=== PATIENT | male | born 1940 | race Caucasian/White ===

== ENCOUNTER → 2018-09-30 | Emergency (ER) | payer OTHER ==
[~2018-09-30] VITALS: Ht 180.3 cm; Wt 94.8 kg
[~2018-09-30] MED LIST: METFORMIN HCL850 MG; METFORMIN HCL850 MG PO; TAMS0.4C; VYTORIN 10/10 M1 TAB
== END | disposition left against medical advice (07) ==
LOC: ER 18:00
DX: Z53.20 Procedure and treatment not carried out because of patient's decision for unspecified reasons (principal)

== ENCOUNTER 2021-07-26 15:09 | Outpatient (CLI) | payer OTHER | END 2021-07-26 15:20 | disposition home or self-care (01) | LOC: RAD 15:09 | PROVIDERS: ATTEND Orthopaedic Surgery Hand Surgery | DX: M25.532 Pain in left wrist (principal); M25.531 Pain in right wrist ==

== ENCOUNTER 2022-02-14 00:11 | Inpatient (IN) | payer OTHER, BC ==
[~2022-02-14] VITALS: Ht 152.4 cm; Wt 88.5 kg
[2022-02-17] MEDS ORDERED: METFORMIN HCL850 M1 ×2 (16:38→16:40)
[2022-02-17] MEDS ORDERED: FLONASE16 GM (16:38)
[2022-02-17] MEDS ORDERED: IPRATROPIUM BRO15 ML (16:39)
[2022-02-17] MEDS ORDERED: PREDNISOLONE ACE5 ML OP (16:39)
[2022-02-17] MEDS ORDERED: TAMSULOSIN HCL0.4 MG (16:39)
[2022-02-17] MEDS ORDERED: RAMIPRIL2.5 MG (16:39)
[2022-02-17] MEDS ORDERED: AZELASTINE205.5 MCG/ (16:39)
[2022-02-17] MEDS ORDERED: VALACYCLOVIR1000 MG (16:39)
== END 2022-02-23 16:46 | disposition home or self-care (01) | DRG 446 ==
LOC: ER 00:11 → MEDI 23:05 → MEDJ 23:05 → MEDI 02-15 10:01
PROVIDERS: Internal Medicine Gastroenterology; ADMIT Internal Medicine; ATTEND Internal Medicine
PROC: BF37ZZZ Magnetic Resonance Imaging (MRI) of Pancreas (ICD-10-PCS; 2022-02-14)
PROC: 0F798ZZ Dilation of Common Bile Duct, Via Natural or Artificial Opening Endoscopic (ICD-10-PCS; 2022-02-21)
PROC: XFJB8A7 Inspection of Hepatobiliary Duct using Single-use Duodenoscope, New Technology Group 7 (ICD-10-PCS; principal; 2022-02-21 13:00)
DX: K80.50 Calculus of bile duct without cholangitis or cholecystitis without obstruction (principal); E11.9 Type 2 diabetes mellitus without complications; E78.5 Hyperlipidemia, unspecified
CPT/HCPCS: 74182

== ENCOUNTER 2023-11-06 13:58 | Outpatient (CLI) | payer OTHER ==
[~2023-11-06 13:58] MED LIST changes: +ACETAMINOPHEN650 M2 PO; +AZELASTINE205.5 MCG/; +FLONASE16 GM; +IPRATROPIUM BRO15 ML; +METFORMIN HCL850 M1; +NORFLEX100MG PO; +PREDNISOLONE ACE5 ML OP; +RAMIPRIL2.5 MG; +TAMSULOSIN HCL0.4 MG; +VALACYCLOVIR1000 MG
== END 2023-11-06 14:26 | disposition home or self-care (01) ==
LOC: SONOGRAMA 13:58
PROVIDERS: ATTEND Physical Medicine & Rehabilitation Sports Medicine
DX: M75.111 Incomplete rotator cuff tear or rupture of right shoulder, not specified as traumatic (principal); M75.112 Incomplete rotator cuff tear or rupture of left shoulder, not specified as traumatic

== ENCOUNTER 2024-04-08 13:05 | Outpatient (CLI) | payer OTHER | END 2024-04-08 13:17 | disposition home or self-care (01) | LOC: RAD 13:05 | PROVIDERS: ATTEND Physical Medicine & Rehabilitation | DX: M54.6 Pain in thoracic spine (principal); W19.XXXA Unspecified fall, initial encounter; S20.212A Contusion of left front wall of thorax, initial encounter ==

== ENCOUNTER 2025-07-08 09:58 | Emergency (ER) | payer OTHER ==
[~2025-07-08] VITALS: Ht 177.8 cm; Wt 113.4 kg
[2025-07-08] MEDS ORDERED: ELIQUIS5 MG PO (10:10)
[2025-07-08] MEDS ORDERED: AMLODIPINE-OLM1 EAC3 (10:10)
[2025-07-08] MEDS ORDERED: DEXAMETHASONE SODIUM PHOSPHATE 4 MG/ML VIAL ONE (10:41)
[2025-07-08] MEDS ORDERED: KETOROLAC TROMETHAMINE 30 MG VIAL ONE (10:41)
[2025-07-08] MEDS ORDERED: CODEINE/PROMETHAZINE HCL 1 ML ML PO ONE (10:45)
[2025-07-08] MEDS ORDERED: DEXAMETHASONE SODIUM PHOSP/PF 10 MG/ML VIAL IJ ONE (10:45)
[2025-07-08] MEDS ORDERED: KETOROLAC TROMETHAMINE 15 MG VIAL IJ ONE (10:45)
[2025-07-08 11:41] LABS: BASO % 0.5 % (0.1-1.2); EOS # 0.12 (0.04-0.54); EOS % 2.1 % (0.7-7.0); LYMPH # 0.74 (1.18-3.74); LYMPH % 13.1 % (19.3-53.1); MEAN PLATELET VOLUME 9.60 fl (9.4-12.4); MONO # 0.47 (0.24-0.82); MONO % 8.3 % (4.7-12.5); NEUT # 4.26 (1.56-6.13); NEUT % 75.8 % (34.0-71.1); RED CELL DISTRIBUTION WIDTH 12.4 % (11.6-14.4)
[2025-07-08 12:05] LABS: ALT/SGPT 26.0 U/L (12-78); AST/SGOT 17.0 U/L (15-37); BILIRUBIN TOTAL 0.8 mg/dL (0.3-1.2); BUN CREA RATIO 12.0 (7.0-25.0); CREATININE SERUM 1.65 mg/dL (0.70-1.30); GFR 39.94; GLOBULINA 3.0 G/DL (2.4-3.5); GLUCOSE FASTING 129.0 mg/dL (65-100); OSMOLALITY SERUM 287.0 MOSM/KG (275-295)
[2025-07-08 12:19] LABS: COVID-19 AG NEGATIVE (NEGATIVE)
[2025-07-08] MEDS ORDERED: PROMETHAZINE W473 ML PO (14:26)
[2025-07-08] MEDS ORDERED: CHLORASEPTIC177 M2 MM (14:26)
== END 2025-07-08 14:30 | disposition home or self-care (01) ==
LOC: ER 09:58
PROVIDERS: Student in an Organized Health Care Education/Training Program
DX: B34.9 Viral infection, unspecified (principal); J02.9 Acute pharyngitis, unspecified; Z20.822 Contact with and (suspected) exposure to COVID-19
CPT/HCPCS: 36415; 96372; 99282; J1100; J1885